=== PATIENT | female | born 1950 | race Hispanic/Latino ===

== ENCOUNTER 2016-06-23 14:06 | Emergency (ER) | payer MEDICARE ==
--- NOTE | 2016-06-23 15:51 | Emergency Department Report ---
Chief Complaint: Psych Stated Complaint: EVAL Time Seen by Provider: 06/23/16 15:46 - HPI History of Present Illness: 65 y/of female come from intermediate .pt unable to give history of reason for been in the ER .pt denies any suicidal or homicidal ideation .pt poor historian . - ROS Review of Systems: per HPI - Exam Vital Signs: Vital Signs 06/23/16 15:16 Temperature 98.2 F Pulse Rate 75 Respiratory 20 Rate Blood Pressure 149/88 O2 Sat by Pulse 99 Oximetry Physical Exam: GENERAL: The patient is dishelved Patient is in NAD. HENT: Normocephalic. Atraumatic. Patient has moist mucous membranes. Throat: No erythema, swelling or exudates. EYES: Extraocular motions are intact, PERRL NECK: Supple. No meningitic signs are noted. There is no adenopathy noted. CHEST/LUNGS: Clear to auscultation bilaterally. No wheezing, rales or rhonchi noted. There is no respiratory distress noted. HEART/CARDIOVASCULAR: Regular rate and rhythm. Normal S1 S2. No murmurs, rubs , clicks, or gallops. ABDOMEN: Abdomen is soft, nontender.. Bowel sounds normoactive. There is no abdominal distention. Negative rebound tenderness. : Deferred. SKIN: There is no rash. There is no edema. There is no diaphoresis. NEURO: The patient is A&Ox3. The patient has no focal neurologic deficits. MUSCULOSKELETAL: There is no tenderness or deformity. There is no limitation range of motion. PSYCH: Pt has flat mood MSE screening note: Focused history and physical exam performed. Due to findings the following was ordered: ED Disposition for MSE Condition: Stable
[2016-06-23 16:22] LABS: Basophils % (Auto) 0.6 % (0.0-1.8); Eosinophils % (Auto) 0.8 % (0.0-4.3); Hematocrit 42.1 % (30.3-42.9); Hemoglobin 13.6 gm/dl (10.1-14.3); Mean Corpuscular HGB Conc 32 % (30-34); Mean Corpuscular Hemoglobin 29 pg (28-32); Mean Corpuscular Volume 88 fl (79-97); Platelet Count 110 K/mm3 (140-440); Red Blood Count 4.77 M/mm3 (3.65-5.03); Red Cell Distribution Width 13.8 % (13.2-15.2); White Blood Count 10.2 K/mm3 (4.5-11.0)
[2016-06-23 16:40] LABS: Calcium 8.7 mg/dL (8.4-10.2)
[2016-06-23 16:41] LABS: Chloride 104.1 mmol/L (98-107); Potassium 3.7 mmol/L (3.6-5.0)
[2016-06-24 09:12] LABS: Urine Drugs of Abuse Note Disclamer
--- NOTE | 2016-06-24 09:22 | Emergency Department Report ---
HPI - General Chief Complaint: Psych Time Seen by Provider: 06/24/16 09:10 - [facility] HPI: [facility] The patient is a 65-year-old female presenting with a chief complaint of confusion. The patient was reportedly a resident at a correction and police were called. The events leading up to police being called are unknown at this time. The patient states police were called "for my protection." The patient states she came to the hospital because "I decided I wanted to get help." The patient states she wants "protection from people running all over me." The patient states the correction is ran by a Ms Tania Gibson Location: Mental State Duration: [see above] Quality: [see above] Severity: [see above] Modifying factors: [see above] Context: [see above] Mode of transportation: [not driving] ED Past Medical Hx - Past Medical History Previous Medical History?: Yes Hx Psychiatric Treatment: Yes (depression) - Surgical History Past Surgical History?: No Additional Surgical History: "Laparoscopy". Partial thyroidectomy - Family History Family history: no significant - Social History Smoking Status: Never Smoker Substance Use Type: None, Prescribed, Other - Medications Home Medications: Home Medications Medication Instructions Recorded Confirmed Last Taken Type LORazepam [Ativan] 1 mg PO QHS #7 tab 06/24/16 Unknown Rx ED Review of Systems ROS: Stated complaint: MH EVAL Other details as noted in HPI Comment: All other systems reviewed and negative Constitutional: denies: chills, fever Eyes: denies: eye pain, eye discharge, vision change ENT: denies: ear pain, throat pain Respiratory: denies: cough, shortness of breath, wheezing Cardiovascular: denies: chest pain, palpitations Endocrine: no symptoms reported Gastrointestinal: denies: abdominal pain, nausea, diarrhea Genitourinary: denies: urgency, dysuria, discharge Musculoskeletal: denies: back pain, joint swelling, arthralgia Skin: denies: rash, lesions Neurological: denies: headache, weakness, paresthesias Psychiatric: other Hematological/Lymphatic: denies: easy bleeding, easy bruising Physical Exam - Physical Exam Vital Signs: Vital Signs 06/23/16 06/24/16 06/24/16 15:16 07:25 07:35 Temperature 98.2 F 98.8 F 97.9 F Pulse Rate 75 88 48 L Respiratory 20 14 18 Rate Blood Pressure 149/88 108/68 Blood Pressure 145/78 [Right] O2 Sat by Pulse 99 98 98 Oximetry Physical Exam: GENERAL: The patient is well-developed female sitting in chair with obvious poor hygiene and soiled clothes HEENT: Normocephalic. Atraumatic. Extraocular motions are intact. Patient has moist mucous membranes. NECK: Supple. Trachea midline CHEST/LUNGS: Clear to auscultation. There is no respiratory distress noted. HEART/CARDIOVASCULAR: Regular. There is no tachycardia. There is no gallop rub or murmur. ABDOMEN: Abdomen is soft, nontender. Patient has normal bowel sounds. There is no abdominal distention. SKIN: There is no rash. There is no edema. There is no diaphoresis. NEURO: The patient is awake and alert. The patient is cooperative. The patient has normal speech MUSCULOSKELETAL: There is no evidence of acute injury. ED Course Vital Signs 06/23/16 06/24/16 06/24/16 15:16 07:25 07:35 Temperature 98.2 F 98.8 F 97.9 F Pulse Rate 75 88 48 L Respiratory 20 14 18 Rate Blood Pressure 149/88 108/68 Blood Pressure 145/78 [Right] O2 Sat by Pulse 99 98 98 Oximetry - Consultations Consultation #1: 06/24/16 12:49 Mental health database reporting consultant has seen patient (see note) and recommends returning patient to correction. Case was discussed with high school social studies teacher states that the correction is willing to take patient back ED Medical Decision Making - Lab Data Result diagrams: 06/23/16 16:12 06/23/16 16:12 Laboratory Tests 06/23/16 06/23/16 06/23/16 16:12 16:12 16:12 WBC 10.2 RBC 4.77 Hgb 13.6 Hct 42.1 MCV 88 MCH 29 MCHC 32 RDW 13.8 Plt Count 110 L Lymph % (Auto) 20.8 [place] % (Auto) 6.4 Eos % (Auto) 0.8 Baso % (Auto) 0.6 Lymph # 2.1 [place] # 0.7 Eos # 0.1 Baso # 0.1 Seg Neutrophils % 71.4 H Seg Neutrophils # 7.2 Sodium 143 Potassium 3.7 Chloride 104.1 Carbon Dioxide 23 Anion Gap 20 BUN 7 Creatinine 1.0 Estimated GFR 56 BUN/Creatinine Ratio 7.00 Glucose 106 H Calcium 8.7 Acetaminophen < 15.0 Plasma/Serum Alcohol 06/23/16 16:12 WBC RBC Hgb Hct MCV MCH MCHC RDW Plt Count Lymph % (Auto) [place] % (Auto) Eos % (Auto) Baso % (Auto) Lymph # [place] # Eos # Baso # Seg Neutrophils % Seg Neutrophils # Sodium Potassium Chloride Carbon Dioxide Anion Gap BUN Creatinine Estimated GFR BUN/Creatinine Ratio Glucose Calcium Acetaminophen Plasma/Serum Alcohol < 0.01 - Differential Diagnosis homelessness, schizophrenia Critical care attestation.: If time is entered above; I have spent that time in minutes in the direct care of this critically ill patient, excluding procedure time. ED Disposition Clinical Impression: Delusional disorder Disposition: DISCHARGED TO HOME OR SELFCARE Is pt being admited?: No Does the pt Need Aspirin: No Condition: Stable Additional Instructions: Return to the emergency department immediately should you develop worsening symptoms, fever, inability to tolerate food or liquid or any other concerns. Prescriptions: LORazepam [Ativan] 1 mg PO QHS #7 tab Referrals: PRIMARY CARE, [Primary Care Provider] - 3-5 Days [facility] [Outside] - 3-5 Days Time of Disposition: 12:54
[2016-06-24 09:53] LABS: Bacteria,Urine 1+ /HPF (Negative); Bilirubin,Urine NEG (Negative); Blood,Urine SM (Negative); Ketones,Urine NEG (Negative); Leukocyte Esterase,Urine SM (Negative); Mucus,Urine FEW /HPF; Nitrite,Urine NEG (Negative); Protein,Urine <15 mg/dL mg/dL (Negative); Urobilinogen,Urine < 2.0 mg/dL (<2.0)
[2016-06-24] MEDS ORDERED: HALDOL PO ONE (12:54)
[2016-06-24 15:37] VITALS: BP 130/75
== END 2016-06-24 15:37 | disposition home or self-care (01) ==
LOC: EEVIPCON 14:06 → ED 14:06
DX: F22 Delusional disorders (principal); F32.9 Major depressive disorder, single episode, unspecified
CPT/HCPCS: 36415; 80048; 80307; 81001; 85025; 99284; G0480; 80320

== ENCOUNTER 2016-11-13 16:08 | Emergency (ER) | payer MEDICARE ==
[2016-11-13 17:53] LABS: Anion Gap 21 mmol/L; Blood Urea Nitrogen 8 mg/dL (7-17); Calcium 9.5 mg/dL (8.4-10.2); Carbon Dioxide 25 mmol/L (22-30); Chloride 100.9 mmol/L (98-107); Glucose 112 mg/dL (65-100); Potassium 3.5 mmol/L (3.6-5.0); Sodium 143 mmol/L (137-145)
[2016-11-13 17:54] LABS: Basophils % (Auto) 0.6 % (0.0-1.8); Eosinophils % (Auto) 1.2 % (0.0-4.3); Hematocrit 39.9 % (30.3-42.9); Hemoglobin 13.3 gm/dl (10.1-14.3); Mean Corpuscular HGB Conc 33 % (30-34); Mean Corpuscular Hemoglobin 29 pg (28-32); Mean Corpuscular Volume 89 fl (79-97); Platelet Count 134 K/mm3 (140-440); Red Cell Distribution Width 12.9 % (13.2-15.2); White Blood Count 5.1 K/mm3 (4.5-11.0)
[2016-11-13 20:31] LABS: Urine Drugs of Abuse Note Disclamer
[2016-11-13 20:47] LABS: Bilirubin,Urine NEG (Negative); Blood,Urine NEG (Negative); Ketones,Urine TR mg/dL (Negative); Leukocyte Esterase,Urine TR (Negative); Mucus,Urine FEW /HPF; Nitrite,Urine NEG (Negative); Protein,Urine <15 mg/dL mg/dL (Negative); Urobilinogen,Urine < 2.0 mg/dL (<2.0)
--- NOTE | 2016-11-14 00:22 | Emergency Department Report ---
HPI - General Chief Complaint: Psych Time Seen by Provider: 11/14/16 00:05 - HPI HPI: This is a 66-year-old female presents to the emergency department via police, from [facility], after the patient started feeling severe depression and suicidal ideations with the thought of slitting her throat. The patient says that there is "too much going on" and has some generalized depression. She denies any homicidal ideations, auditory or visual hallucinations. The patient is a history of schizoaffective disorder for which she gets in [place] shots monthly but says "it is not doing anything for me." The patient says she was sent in to "get admitted to a psychiatric facility." She denies any tobacco abuse, illicit drug use, alcohol abuse. She does not have a primary care doctor. She has a past medical history of hypertension but is not on any medication for it. ED Past Medical Hx - Past Medical History Hx Hypertension: Yes Hx Psychiatric Treatment: Yes (depression / SCHIZOAFFECTIVE DISORDER) Additional medical history: GOUT - Surgical History Additional Surgical History: "Laparoscopy". Partial thyroidectomy. TONSILLECTOMY. TUBAL LIGATION - Social History Smoking Status: Never Smoker Substance Use Type: None - Medications Home Medications: Home Medications Medication Instructions Recorded Confirmed Last Taken Type LORazepam [Ativan] 1 mg PO QHS #7 tab 06/24/16 Unknown Rx ED Review of Systems ROS: Stated complaint: PSYCHIARTRIC HELP Other details as noted in HPI Comment: All other systems reviewed and negative Constitutional: denies: chills, fever Eyes: denies: eye pain, eye discharge, vision change ENT: denies: ear pain, throat pain Respiratory: denies: cough, shortness of breath, wheezing Cardiovascular: denies: chest pain, palpitations Gastrointestinal: denies: abdominal pain, nausea, diarrhea Genitourinary: denies: urgency, dysuria, discharge Musculoskeletal: denies: back pain, joint swelling, arthralgia Skin: denies: rash, lesions Neurological: denies: headache, weakness, paresthesias Psychiatric: depression, suicidal thoughts. denies: auditory hallucinations, visual hallucinations, homicidal thoughts Physical Exam - Physical Exam Vital Signs: Vital Signs 11/13/16 17:01 Temperature 98.3 F Pulse Rate 66 Respiratory 17 Rate Blood Pressure 151/85 O2 Sat by Pulse 100 Oximetry Physical Exam: GENERAL: The patient is well-developed well-nourished. HEENT: Normocephalic. Atraumatic. Extraocular motions are intact. Patient has moist mucous membranes. NECK: Supple. Trachea is midline. CHEST/LUNGS: Clear to auscultation. There is no respiratory distress noted. HEART/CARDIOVASCULAR: Regular. There is no tachycardia. There is no gallop rub or murmur. ABDOMEN: Abdomen is soft, nontender. Patient has normal bowel sounds. There is no abdominal distention. SKIN: There is no rash. There is no edema. There is no diaphoresis. NEURO: The patient is awake, alert, and oriented. The patient is cooperative. The patient has no focal neurologic deficits. The patient has normal speech. MUSCULOSKELETAL: There is no tenderness or deformity. There is no limitation range of motion. There is no evidence of acute injury. ED Course Vital Signs 11/13/16 17:01 Temperature 98.3 F Pulse Rate 66 Respiratory 17 Rate Blood Pressure 151/85 O2 Sat by Pulse 100 Oximetry ED Medical Decision Making - Lab Data Result diagrams: 11/13/16 17:21 11/13/16 17:21 - Medical Decision Making 66-year-old female presents to the emergency department with depression, suicidal ideations and a plan to cut her throat. It is some generalized depression and there is no one specific thing that is causing her to feel this way. However for this reason she has been made a 1013. Her vital signs are stable throughout her ED course. Labs are unremarkable. Patient is medically cleared for psychiatric placement and the crisis therapist been contacted to assist. - Differential Diagnosis schizophrenia, schizoaffective, bipolar disorder, depression Critical Care Time: No Critical care attestation.: If time is entered above; I have spent that time in minutes in the direct care of this critically ill patient, excluding procedure time. ED Disposition Clinical Impression: Suicidal ideations Depression Qualifiers: Depression Type: unspecified Qualified Code(s): F32.9 - Major depressive disorder, single episode, unspecified Disposition: DC/TX-65 PSY HOSP/PSY UNIT Is pt being admited?: No Condition: Stable Referrals: PRIMARY CARE, [Primary Care Provider] - 3-5 Days Time of Disposition: 00:48
--- NOTE | 2016-11-14 11:45 | Consultation ---
History of Present Illness - Reason for Consult Consult date: 11/21/16 Reason for consult: depression Medications and Allergies Allergies Allergy/AdvReac Type Severity Reaction Status Date / Time No Known Allergies Allergy Verified 11/13/16 17:01 Home Medications Medication Instructions Recorded Confirmed Last Taken Type No Known Home Medications [No 11/14/16 11/14/16 Unknown History Reported Home Medications] Mental Status Exam - Vital signs Last Vital Signs Temp 97.6 F 11/14/16 03:24 Pulse 56 L 11/14/16 03:24 Resp 18 11/14/16 03:24 BP 126/79 11/14/16 03:24 Pulse Ox 98 11/14/16 03:24 Results Result Diagrams: 11/13/16 17:21 11/13/16 17:21 Abnormal lab results 11/13/16 11/13/16 Range/Units 17:21 17:21 RDW 12.9 L (13.2-15.2) % Plt Count 134 L (140-440) K/mm3 Potassium 3.5 L (3.6-5.0) mmol/L Glucose 112 H (65-100) mg/dL All other labs normal. Assessment and Plan Assessment and plan: CHIEF COMPLAINT IN PATIENTS WORDS: HISTORY OF PRESENT ILLNESS REQUIRING ADMISSION TO INPATIENT LEVEL OF CARE: (Describe the onset of Illness, Intensity of Symptoms, and Circumstances Leading to Admission) This is a 66 year-old domiciled female who reports a formal PPH schizoaffective disorder who now presents with police with her outpatient counselor due to a recent expression of suicidal thoughts with a plan. Patient was last seen by her psychiatrist about a week ago at which time she was given a long-acting Invega Sustenna shot. She notes that these medications are simply not working for her. On examination, she continues to express passive suicidal thoughts. It is unclear if she has any clear intent or plan; however, she has in the past verbalizes a desire to slit her throat. It is unclear if she has the means to do so and or made a very clear plan. PSYCHIATRIC REVIEW OF SYSTEMS: Substance: None Depression: Withdrawn, sad, a sense of hopelessness Daisy: denies labile moods, no flight of ideas, not impulsive Psychosis: no AVH. No paranoia/grandiosity/erotomania Anxiety/ OCD/ PTSD: denies somatic symptoms, flashbacks, nightmares, avoidance, panic attacks Suicidality: Passive SI Other Self-Injurious Behavior: none currently, no SIB noted recently Violent/ Aggressive Behavior: none noted CURRENT MEDICATIONS: ( Psychiatric and Non-psychiatric ) Lorazepam Invega Sustenna ALLERGIES: NKDA PAST PSYCHIATRIC HISTORY: ( Prior Treatment, Precipitating Factors, Diagnosis, and Course of Treatment ) Inpatient: [place] Outpatient: [facility] Prior Suicide Attempts: Previous attempt noted 2 years ago per patient Prior Self-Injurious Behaviors: None noted PAST PSYCHIATRIC MEDICATION TRIALS: Historical Medications: Hydroxyzine Olanzapine 10 mg Cogentin 2 mg BuSpar 10 mg Lorazepam 1 mg Risperidone 2 mg MEDICAL HISTORY: (Chronic and Acute Illnesses, Current Medical Treatment, Recent Hospitalizations) Gout and hypertension HISTORY OF TRAUMA/ABUSE: Patient denies on clinical examination DRUG / ALCOHOL ABUSE HISTORY: Denies Detoxification / Withdrawal: none noted SOCIAL HISTORY: (Educational Level, Employment, Support System, Interpersonal Relationships) Recentlythat she was imprisoned several years ago FAMILY HISTORY: Psychiatric/Substance Abuse MENTAL STATUS EXAM: General Appearance: casually dressed, in acute distress Sensorium/Consciousness: alert and responding to external stimuli Eye Contact: limited Attitude / Behavior: cooperative, but guarded Psychomotor & Musculoskeletal Activity: WNL Mood: sad Affect: constricted Speech / Language: normal Thought Processes: organized, logical, linear Thought Content: + SI, no HI Perception: no AVH Orientation: person, place, time and situation STRENGTHS: Desire to engage in treatment PSYCHOSOCIAL AND ENVIRONMENTAL STRESSORS: Appears isolated ADMITTING DIAGNOSES Psychiatric: Major depressive disorder Historical diagnosis of schizoaffective disorder INITIAL PLAN OF CARE AND TREATMENT GOALS: Transfer patient to inpatient level of care
[2016-11-14 15:15] VITALS: BP 135/77
== END 2016-11-14 13:35 ==
LOC: ED 16:08 → EEVIPCON 16:08 → ED 11-14 13:35
DX: F32.9 Major depressive disorder, single episode, unspecified (principal); R45.851 Suicidal ideations; I10 Essential (primary) hypertension; F25.9 Schizoaffective disorder, unspecified
CPT/HCPCS: 36415; 80048; 80307; 81001; 85025; 99285; G0480; 80320

== ENCOUNTER 2017-02-08 17:45 | Emergency (ER) | payer MEDICARE ==
--- NOTE | 2017-02-08 17:56 | Emergency Department Report ---
Chief Complaint: Pain General Stated Complaint: EXTREMITY PAIN Time Seen by Provider: 02/08/17 17:51 - HPI History of Present Illness: PT c/o body pain. PT states it has been building up for a while. PT states Navneet Olsen told her that she has neuropathy. PT states she does not have dm - ROS Review of Systems: - si pt denies injury - Exam Physical Exam: obese pt, alert slow to respond to questions MSE screening note: Focused history and physical exam performed. Due to findings the following was ordered: reviewed pt's labs, previous hypokalemia - will check labs ED Disposition for MSE Condition: Stable
[2017-02-08 18:25] LABS: Basophils % (Auto) 0.3 % (0.0-1.8); Eosinophils % (Auto) 2.5 % (0.0-4.3); Hematocrit 37.8 % (30.3-42.9); Hemoglobin 12.5 gm/dl (10.1-14.3); Mean Corpuscular HGB Conc 33 % (30-34); Mean Corpuscular Hemoglobin 29 pg (28-32); Mean Corpuscular Volume 89 fl (79-97); Platelet Count 153 K/mm3 (140-440); Red Blood Count 4.24 M/mm3 (3.65-5.03); White Blood Count 6.1 K/mm3 (4.5-11.0)
[2017-02-08 19:20] LABS: Anion Gap 21 mmol/L; BUN/Creatinine Ratio 15.55; Blood Urea Nitrogen 14 mg/dL (7-17); Calcium 8.7 mg/dL (8.4-10.2); Carbon Dioxide 23 mmol/L (22-30); Chloride 107.4 mmol/L (98-107); Creatine Kinase 168 units/L (30-135); Glucose 103 mg/dL (65-100); Potassium 3.9 mmol/L (3.6-5.0); Sodium 147 mmol/L (137-145)
[2017-02-08] MEDS ORDERED: TORADOL IM ONE (22:28)
[2017-02-08] MEDS ORDERED: DECADRON IM ONE (22:28)
--- NOTE | 2017-02-08 22:29 | Emergency Department Report ---
HPI - General Chief Complaint: Pain General Time Seen by Provider: 02/08/17 17:51 - HPI HPI: Patient here reports that she has pain in her feet and legs and hands that's been going on for years. She said it started building up and she was told that she has neuropathy. She also states she was told that she has arthritis. Patient denies being a diabetic or denies ever been told that she has vascular/ circulatory problems. She has a history of high blood pressure, deep depression and schizoaffective disorder. Pain is 10 out of 10 in burn in mostly to her feet but she has arthritic pain all over her joints that 3 out of 10 and aching. Denies any fever or chills. Denies any trauma. Denies any chest pain or shortness of breath. Denies any fever or chills. She denies nausea or vomiting, abdominal or back pain. Denies swelling to joints or Extremities. Patient says she does not have a primary care physician and would like to be referred to one. She reports that she took [id number] pain medication but it didn't help. Nothing makes pain better or worse and nothing makes it better. ED Past Medical Hx - Past Medical History Previous Medical History?: Yes Hx Hypertension: Yes Hx Psychiatric Treatment: Yes (depression / SCHIZOAFFECTIVE DISORDER) Additional medical history: GOUT - Surgical History Past Surgical History?: Yes Additional Surgical History: "Laparoscopy". Partial thyroidectomy. TONSILLECTOMY. TUBAL LIGATION - Family History Family history: hypertension - Social History Smoking Status: Never Smoker Substance Use Type: None Other Social History: single - Medications Home Medications: Home Medications Medication Instructions Recorded Confirmed Last Taken Type traMADol [Ultram 50 MG tab] 50 mg PO Q6HR PRN #12 tablet 02/08/17 Unknown Rx ED Review of Systems ROS: Stated complaint: EXTREMITY PAIN Other details as noted in HPI Comment: All other systems reviewed and negative Constitutional: no symptoms reported. denies: chills, fever Eyes: denies: eye pain, eye discharge Respiratory: no symptoms reported Cardiovascular: denies: chest pain, palpitations, edema, syncope Gastrointestinal: denies: abdominal pain, nausea, vomiting, diarrhea Genitourinary: denies: urgency, dysuria, frequency, hematuria, discharge Musculoskeletal: arthralgia. denies: back pain Skin: denies: rash Neurological: denies: headache, weakness, numbness, paresthesias, confusion, abnormal gait, vertigo Physical Exam - Physical Exam Vital Signs: Vital Signs 02/08/17 17:52 Temperature 98.9 F Pulse Rate 66 Respiratory 16 Rate Blood Pressure 137/78 O2 Sat by Pulse 95 Oximetry General: This is a 66-year-old female well-nourished well-developed in no acute distress. Physical Exam: Head: Normocephalic, atraumatic, no abrasion, no bruising and no contusion. Eyes: Biateral pupils equal and reactive to light, bilateral EOM intact.. Bilateral conjunctival and sclera without injection, normal accommodation. Mouth: No pharyngeal exudate or erythema. Uvula is midline and oral airways patent. Moist and tongue is normal Neck: Supple, no adenopathy, full range of motion and no C-spine tenderness. No swelling or tracheal deviation Cardiovascular: S1, S2. Regular rate and rhythm. No murmur. Capillary refill is less then 3 seconds. Lungs: Clear to auscultate bilaterally. No rhonchi, wheezes or rales. No chest wall tenderness MSK: Strength 5/5 in all extremities. No joint deformity or crepitus. Normal inspection. Full range of motion to all extremities Extremities: No clubbing, cyanosis or edema. +2 pulses. No neurovascular compromise Neurological: GCS is 15, alert and oriented 3, normal gait, negative pronator drift, negative Romberg. No sensory or motor deficit. Speech is clear and fluid and no facial droop . Normal reflexes Back: Full range of motion, normal inspection, no paraspinal or vertebral tenderness. negative SLR bilaterally and no saddle anesthesia Skin: Clean, dry and intact. No rash or lesions. Psych: Normal mood and behavior. ED Course Vital Signs 02/08/17 17:52 Temperature 98.9 F Pulse Rate 66 Respiratory 16 Rate Blood Pressure 137/78 O2 Sat by Pulse 95 Oximetry - Reevaluation(s) Reevaluation #1: 02/08/17 23:29 Patient received Decadron 10 mg IM and Toradol 60 mg IM for generalized pain and voice relief of pain. ED Medical Decision Making - Lab Data Result diagrams: 02/08/17 18:09 02/08/17 18:09 Lab Results 02/08/17 02/08/17 Range/Units 18:09 18:09 WBC 6.1 (4.5-11.0) K/mm3 RBC 4.24 (3.65-5.03) M/mm3 Hgb 12.5 (10.1-14.3) gm/dl Hct 37.8 (30.3-42.9) % MCV 89 (79-97) fl MCH 29 (28-32) pg MCHC 33 (30-34) % RDW 15.0 (13.2-15.2) % Plt Count 153 (140-440) K/mm3 Lymph % (Auto) 32.1 (13.4-35.0) % [place] % (Auto) 6.5 (0.0-7.3) % Eos % (Auto) 2.5 (0.0-4.3) % Baso % (Auto) 0.3 (0.0-1.8) % Lymph # 2.0 (1.2-5.4) K/mm3 [place] # 0.4 (0.0-0.8) K/mm3 Eos # 0.2 (0.0-0.4) K/mm3 Baso # 0.0 (0.0-0.1) K/mm3 Seg Neutrophils % 58.6 (40.0-70.0) % Seg Neutrophils # 3.6 (1.8-7.7) K/mm3 Sodium 147 H (137-145) mmol/L Potassium 3.9 (3.6-5.0) mmol/L Chloride 107.4 H (98-107) mmol/L Carbon Dioxide 23 (22-30) mmol/L Anion Gap 21 mmol/L BUN 14 (7-17) mg/dL Creatinine 0.9 (0.7-1.2) mg/dL Estimated GFR > 60 ml/min BUN/Creatinine Ratio 15.55 % Glucose 103 H (65-100) mg/dL Calcium 8.7 (8.4-10.2) mg/dL Total Creatine Kinase 168 H (30-135) units/L - Medical Decision Making ED Course: She would chronic neuropathy pain and osteoarthritis and presents to the emergency room requesting medication because she said she is having increasing pain that is worse or feet. Patient was given Decadron 10 mg IM and Toradol 60 mg IM which relieved her pain. Still able to tolerate oral liquids in emergency room. Discussed with patient that she has chronic neuropathy and she will need to follow up with her primary care doctor and possible repeat be referred to neurologist for further testing and evaluation. I also discussed with her that she will probably need outpatient ultrasound to check for peripheral vascular disease. CBC was normal and her chemistry revealed mild elevation in sodium and chloride. CK 168 which is mildly elevated but she is able to tolerate fluids. I Discussed with her that she will need to increase her fluid intake. Patient voiced understanding and discharge diagnosis and treatment plan and discharged home for referral to primary care physician Labs: The lab section for lab results Assessment/plan 1. Generalized pain-chronic 2. Arthralgia multiple joints 3. Elevated CK-Mild @ 168. Pt able tolerate oral liquids. Pt Condition discharged home with prescription for tramadol and to follow-up at [facility] for further management of chronic pain. I also instructed her that she'll need to have lab tests then and possible referral to neurologist. Critical care attestation.: If time is entered above; I have spent that time in minutes in the direct care of this critically ill patient, excluding procedure time. ED Disposition Clinical Impression: Elevated CK, Chronic pain disorder, Arthralgia of multiple joints Disposition: DC-01 TO HOME OR SELFCARE Is pt being admited?: No Does the pt Need Aspirin: No Condition: Stable Instructions: Arthralgia (ED), Chronic Pain (ED) Additional Instructions: Follow up with [facility] for further evaluation and treatment. Take tramadol as prescribed but please do not drive or operate heavy machinery while taking this medication Please increase your fluid intake as this will prevent dehydration Prescriptions: traMADol [Ultram 50 MG tab] 50 mg PO Q6HR PRN #12 tablet PRN Reason: Pain Referrals: [facility] [Outside] - 2-3 Days
[2017-02-09 00:33] VITALS: BP 144/88
== END 2017-02-09 | disposition home or self-care (01) ==
LOC: ED 17:45
DX: G89.29 Other chronic pain (principal); M79.642 Pain in left hand; M79.641 Pain in right hand; M79.605 Pain in left leg; M79.604 Pain in right leg; R74.8 Abnormal levels of other serum enzymes; I10 Essential (primary) hypertension
CPT/HCPCS: 36415; 80048; 82550; 85025; 96372; 99282; J1100; J1885

== ENCOUNTER 2017-02-14 20:28 | Emergency (ER) | payer MEDICARE ==
[2017-02-14 20:55] LABS: Urine Drugs of Abuse Note Disclamer
[2017-02-14 21:06] LABS: Basophils % (Auto) 0.4 % (0.0-1.8); Eosinophils % (Auto) 2.9 % (0.0-4.3); Hematocrit 42.7 % (30.3-42.9); Hemoglobin 14.5 gm/dl (10.1-14.3); Mean Corpuscular HGB Conc 34 % (30-34); Mean Corpuscular Hemoglobin 30 pg (28-32); Mean Corpuscular Volume 87 fl (79-97); Platelet Count 174 K/mm3 (140-440); Red Cell Distribution Width 14.8 % (13.2-15.2); White Blood Count 7.1 K/mm3 (4.5-11.0)
[2017-02-14 21:07] LABS: Bacteria,Urine 1+ /HPF (Negative); Bilirubin,Urine NEG (Negative); Blood,Urine NEG (Negative); Ketones,Urine NEG (Negative); Leukocyte Esterase,Urine SM (Negative); Nitrite,Urine NEG (Negative); Protein,Urine <15 mg/dL mg/dL (Negative); Urobilinogen,Urine < 2.0 mg/dL (<2.0)
[2017-02-14 21:25] LABS: Anion Gap 17 mmol/L; BUN/Creatinine Ratio 22.22; Blood Urea Nitrogen 20 mg/dL (7-17); Calcium 9.5 mg/dL (8.4-10.2); Carbon Dioxide 29 mmol/L (22-30); Chloride 103.1 mmol/L (98-107); Glucose 85 mg/dL (65-100); Potassium 4.1 mmol/L (3.6-5.0); Sodium 145 mmol/L (137-145)
[2017-02-15] MEDS ORDERED: ALUM-MAG HYDROX-SIMETH 200-200-20MG/5ML PO PRN (02:04)
[2017-02-15] MEDS ORDERED: MILK OF MAGNESIA PO PRN (02:04)
[2017-02-15] MEDS ORDERED: TYLENOL PO PRN (02:04)
--- NOTE | 2017-02-15 02:04 | Emergency Department Report ---
ED Psych HPI - General Chief Complaint: Psych Stated Complaint: MENTAL HEALTH ISSUE Time Seen by Provider: 02/15/17 00:09 Source: patient Mode of arrival: Ambulatory - History of Present Illness Initial Comments: Patient is a 66-year-old female past medical history of depression and schizoaffective disorder who presents suicidal ideation. Patient suicidal ideation was gradual in nature she states that [facility] and she is very anxious. She has no plan for her to commit suicide. However she states that she is so anxious that she just wants to . Patient is not hearing any voices and she denies having any homicidal ideation. She has no alleviating or aggravating factors. Patient denies ingesting any substances today. - Related Data Previous Rx's Medication Instructions Recorded Last Taken Type traMADol [Ultram 50 MG tab] 50 mg PO Q6HR PRN #12 tablet 02/08/17 Unknown Rx Allergies Allergy/AdvReac Type Severity Reaction Status Date / Time Penicillins Allergy Unknown Verified 02/08/17 17:52 aspirin AdvReac Swelling Verified 02/08/17 17:52 ED Review of Systems ROS: Stated complaint: MENTAL HEALTH ISSUE Other details as noted in HPI Constitutional: denies: chills, fever Eyes: denies: eye pain, eye discharge, vision change ENT: denies: ear pain, throat pain Respiratory: denies: cough, shortness of breath, wheezing Cardiovascular: denies: chest pain, palpitations Endocrine: no symptoms reported Gastrointestinal: denies: abdominal pain, nausea, diarrhea Genitourinary: denies: urgency, dysuria, discharge Musculoskeletal: denies: back pain, joint swelling, arthralgia Skin: denies: rash, lesions Neurological: denies: headache, weakness, paresthesias Psychiatric: anxiety, depression, suicidal thoughts. denies: auditory hallucinations, visual hallucinations Hematological/Lymphatic: denies: easy bleeding, easy bruising ED Past Medical Hx - Past Medical History Previous Medical History?: Yes Hx Hypertension: Yes Hx Psychiatric Treatment: Yes (depression / SCHIZOAFFECTIVE DISORDER) Additional medical history: GOUT - Surgical History Past Surgical History?: Yes Additional Surgical History: "Laparoscopy". Partial thyroidectomy. TONSILLECTOMY. TUBAL LIGATION - Social History Smoking Status: Never Smoker Substance Use Type: None - Medications Home Medications: Home Medications Medication Instructions Recorded Confirmed Last Taken Type traMADol [Ultram 50 MG tab] 50 mg PO Q6HR PRN #12 tablet 02/08/17 Unknown Rx ED Physical Exam - General Limitations: No Limitations General appearance: alert, in no apparent distress - Head Head exam: Present: atraumatic, normocephalic - Eye Eye exam: Present: normal appearance - ENT ENT exam: Present: mucous membranes moist - Neck Neck exam: Present: normal inspection - Respiratory Respiratory exam: Present: normal lung sounds bilaterally. Absent: respiratory distress - Cardiovascular Cardiovascular Exam: Present: regular rate, normal rhythm. Absent: systolic murmur, diastolic murmur, rubs, gallop - GI/Abdominal GI/Abdominal exam: Present: soft, normal bowel sounds - Extremities Exam Extremities exam: Present: normal inspection - Back Exam Back exam: Present: normal inspection - Neurological Exam Neurological exam: Present: alert, oriented X3 - Psychiatric Psychiatric exam: Present: normal affect, normal mood - Skin Skin exam: Present: warm, dry, intact, normal color. Absent: rash ED Course Vital Signs 02/14/17 02/15/17 20:34 01:42 Temperature 98.9 F 98.0 F Pulse Rate 65 62 Respiratory 18 18 Rate Blood Pressure 163/93 Blood Pressure 159/93 [Left] O2 Sat by Pulse 99 99 Oximetry ED Medical Decision Making - Lab Data Result diagrams: 02/14/17 20:48 02/14/17 20:48 Lab Results 02/14/17 02/14/17 02/14/17 Range/Units 20:48 20:48 20:48 WBC 7.1 (4.5-11.0) K/mm3 RBC 4.90 (3.65-5.03) M/mm3 Hgb 14.5 H (10.1-14.3) gm/dl Hct 42.7 (30.3-42.9) % MCV 87 (79-97) fl MCH 30 (28-32) pg MCHC 34 (30-34) % RDW 14.8 (13.2-15.2) % Plt Count 174 (140-440) K/mm3 Lymph % (Auto) 34.7 (13.4-35.0) % [place] % (Auto) 7.9 H (0.0-7.3) % Eos % (Auto) 2.9 (0.0-4.3) % Baso % (Auto) 0.4 (0.0-1.8) % Lymph # 2.4 (1.2-5.4) K/mm3 [place] # 0.6 (0.0-0.8) K/mm3 Eos # 0.2 (0.0-0.4) K/mm3 Baso # 0.0 (0.0-0.1) K/mm3 Seg Neutrophils % 54.1 (40.0-70.0) % Seg Neutrophils # 3.8 (1.8-7.7) K/mm3 Sodium 145 (137-145) mmol/L Potassium 4.1 (3.6-5.0) mmol/L Chloride 103.1 (98-107) mmol/L Carbon Dioxide 29 (22-30) mmol/L Anion Gap 17 mmol/L BUN 20 H (7-17) mg/dL Creatinine 0.9 (0.7-1.2) mg/dL Estimated GFR > 60 ml/min BUN/Creatinine Ratio 22.22 % Glucose 85 (65-100) mg/dL Calcium 9.5 (8.4-10.2) mg/dL Urine Color (Yellow) Urine Turbidity (Clear) Urine pH (5.0-7.0) Ur Specific [place] (1.003-1.030) Urine Protein (Negative) mg/dL Urine Glucose (UA) (Negative) mg/dL Urine Ketones (Negative) mg/dL Urine Blood (Negative) Urine Nitrite (Negative) Urine Bilirubin (Negative) Urine Urobilinogen (<2.0) mg/dL Ur Leukocyte Esterase (Negative) Urine WBC (Auto) (0.0-6.0) /HPF Urine RBC (Auto) (0.0-6.0) /HPF U Epithel Cells (Auto) (0-13.0) /HPF Urine Bacteria (Auto) (Negative) /HPF Urine HCG, Qual (Negative) Urine Opiates Screen Urine Methadone Screen Ur Barbiturates Screen Ur Phencyclidine Scrn Ur Amphetamines Screen U Benzodiazepines Scrn Urine Cocaine Screen U Marijuana (THC) Screen Drugs of Abuse Note Plasma/Serum Alcohol < 0.01 (0-0.07) gm% 02/14/17 02/14/17 Range/Units Unknown Unknown WBC (4.5-11.0) K/mm3 RBC (3.65-5.03) M/mm3 Hgb (10.1-14.3) gm/dl Hct (30.3-42.9) % MCV (79-97) fl MCH (28-32) pg MCHC (30-34) % RDW (13.2-15.2) % Plt Count (140-440) K/mm3 Lymph % (Auto) (13.4-35.0) % [place] % (Auto) (0.0-7.3) % Eos % (Auto) (0.0-4.3) % Baso % (Auto) (0.0-1.8) % Lymph # (1.2-5.4) K/mm3 [place] # (0.0-0.8) K/mm3 Eos # (0.0-0.4) K/mm3 Baso # (0.0-0.1) K/mm3 Seg Neutrophils % (40.0-70.0) % Seg Neutrophils # (1.8-7.7) K/mm3 Sodium (137-145) mmol/L Potassium (3.6-5.0) mmol/L Chloride (98-107) mmol/L Carbon Dioxide (22-30) mmol/L Anion Gap mmol/L BUN (7-17) mg/dL Creatinine (0.7-1.2) mg/dL Estimated GFR ml/min BUN/Creatinine Ratio % Glucose (65-100) mg/dL Calcium (8.4-10.2) mg/dL Urine Color Yellow (Yellow) Urine Turbidity Slightly-cloudy (Clear) Urine pH 6.0 (5.0-7.0) Ur Specific [place] 1.014 (1.003-1.030) Urine Protein <15 mg/dl (Negative) mg/dL Urine Glucose (UA) Neg (Negative) mg/dL Urine Ketones Neg (Negative) mg/dL Urine Blood Neg (Negative) Urine Nitrite Neg (Negative) Urine Bilirubin Neg (Negative) Urine Urobilinogen < 2.0 (<2.0) mg/dL Ur Leukocyte Esterase Sm (Negative) Urine WBC (Auto) 10.0 H (0.0-6.0) /HPF Urine RBC (Auto) 2.0 (0.0-6.0) /HPF U Epithel Cells (Auto) 12.0 (0-13.0) /HPF Urine Bacteria (Auto) 1+ (Negative) /HPF Urine HCG, Qual Negative (Negative) Urine Opiates Screen Presumptive negative Urine Methadone Screen Presumptive negative Ur Barbiturates Screen Presumptive negative Ur Phencyclidine Scrn Presumptive negative Ur Amphetamines Screen Presumptive negative U Benzodiazepines Scrn Presumptive negative Urine Cocaine Screen Presumptive negative U Marijuana (THC) Screen Presumptive negative Drugs of Abuse Note Disclamer Plasma/Serum Alcohol (0-0.07) gm% - Medical Decision Making Chief medical diagnosis: Schizoaffective disorder Differential diagnosis: Suicidal ideation, substance induced mood disorder, bipolar I will get CBC, CMP, urine drug screen, urinalysis, alcohol level The patient being suicidal and a harm to herself and pt wants to kill herself I will sign a 1013 hold on this patient and will have patient be evaluated by mental health worker. Critical care attestation.: If time is entered above; I have spent that time in minutes in the direct care of this critically ill patient, excluding procedure time. ED Disposition Clinical Impression: Suicidal ideation Schizoaffective disorder Qualifiers: Schizoaffective disorder type: depressive Qualified Code(s): F25.1 - Schizoaffective disorder, depressive type Disposition: DC/TX-65 PSY HOSP/PSY UNIT Is pt being admited?: No Does the pt Need Aspirin: No Condition: Stable Referrals: PRIMARY CARE, [Primary Care Provider] - 3-5 Days
[2017-02-16 15:00] VITALS: BP 132/89
== END 2017-02-16 15:03 ==
LOC: ED 20:28 → EEVIPCON 20:28 → ED 02-16 15:03
DX: R45.851 Suicidal ideations (principal); F25.1 Schizoaffective disorder, depressive type; I10 Essential (primary) hypertension; F32.9 Major depressive disorder, single episode, unspecified; Z88.0 Allergy status to penicillin; Z88.6 Allergy status to analgesic agent
CPT/HCPCS: 36415; 80048; 80307; 81001; 81025; 85025; 99285; G0480; 80320